=== PATIENT | female | born 1985 | race Caucasian/White ===

== ENCOUNTER 2023-03-06 19:54 | Emergency (ER) | payer OTHER ==
[~2023-03-06] VITALS: Ht 157.5 cm; Wt 78.0 kg
--- NOTE | 2023-03-06 20:00 | NUR ---
Patient triaged and placed in ROOM 7. VSS and patient appears in no acute distress at this time. Accompanied by CARA FOWLER. notified of need for MSE.
--- NOTE | 2023-03-06 20:02 | NUR ---
ER at bedside examining patient.
[2023-03-06 20:04] VITALS: BP_SYST 147
--- NOTE | 2023-03-06 20:11 | NUR ---
PT BIB BLS FROM HOME C/O HEAVEY BLOODY DISCHARGE SINCE 1630. PT STATES TOOK AN PILL ON WED. PT STATES HAD SOME GENERALIZED WEAKNESS AT THE PARK WHEN CALLED BLS. PT STATES WENT THROUGH 16 PADS TODAY. PT RESTING COMFORTABLY IN BED WITH RAILS UP
--- NOTE | 2023-03-06 20:12 | NUR ---
REPORT GIVEN TO YARELI FLORES, SAFETY RAILS UP CONNECTED TO CONTINOUS VS MONITOR.
[2023-03-06 20:22] LABS: BASOPHILS # (AUTO) 0.1 K/uL (0.0-0.2); EOSINOPHILS # (AUTO) 0.2 K/uL (0.0-0.4); EOSINOPHILS % (AUTO) 1.4 % (0.0-4.0); HEMATOCRIT 37.3 % (36-48); HEMOGLOBIN 12.3 g/dL (12.0-16.0); LYMPHOCYTES # (AUTO) 3.4 K/uL (1.0-5.5); LYMPHOCYTES % (AUTO) 24.4 % (20.5-51.5); MEAN CORPUSCULAR HEMOGLOBIN 30 pg (27-31); MEAN CORPUSCULAR HGB CONC 33 % (32-36); MEAN CORPUSCULAR VOLUME 91 fL (79.0-98.0); MONOCYTES # (AUTO) 0.7 K/uL (0.0-1.0); MONOCYTES % (AUTO) 5.2 % (1.7-9.3); NEUTROPHILS # (AUTO) 9.5 K/uL (1.8-7.7); PLATELET COUNT (AUTO) 381 K/uL (130-430); RED CELL DISTRIBUTION WIDTH 13.3 % (9.0-15.0)
--- NOTE | 2023-03-07 01:11 | NUR ---
Patient given written and verbal discharge instructions and verbalizes understanding. ER MD discussed with patient the results and treatment provided. Patient in stable condition. ID arm band removed. SUPPLIES GIVEN, NOTED WALKING WITH STEADY GAIT Rx of given. Patient educated on pain management and to follow up with PMD. Pain Scale 2/10. Opportunity for questions provided and answered. Medication side effect fact sheet provided.
[2023-03-07 01:16] VITALS: BP_SYST 117
== END 2023-03-07 01:11 | disposition home or self-care (01) ==
LOC: SED 19:54
DX: Z33.2 Encounter for elective termination of pregnancy (principal); O20.9 Hemorrhage in early pregnancy, unspecified; Z3A.08 8 weeks gestation of pregnancy; Z79.899 Other long term (current) drug therapy
CPT/HCPCS: 36415; 76801; 76817; 84702; 85025; 99284